=== PATIENT | male | born 2000 | race Caucasian/White ===

== ENCOUNTER 2018-08-23 11:36 | Day surgery (SDC) | payer OTHER ==
[2018-08-22 15:58] VITALS: BMI 23.1
[2018-08-23] MEDS ORDERED: Fentanyl 250 MCG/5 ML VIAL ONE (13:30)
[2018-08-23] MEDS ORDERED: Bupivacaine HCl 0.5%/Epinephrine 1:200,000/PF 30 ml Vial ONE (13:34)
[2018-08-23] MEDS ORDERED: Neomycin-Polymyxin 1 ML AMP ONE (13:34)
[2018-08-23] MEDS ORDERED: PHENYLEPHRINE-NS 100 MCG/ML 10 ML SYRINGE ONE (14:29)
[2018-08-23] MEDS ORDERED: PROPOFOL 200 MG/20 ML VIAL ONE (14:29)
[2018-08-23] MEDS ORDERED: Glycopyrrolate 0.2 MG/ML 5 ML SYRINGE ONE (14:29)
[2018-08-23] MEDS ORDERED: Lidocaine 1% PF 5 ML VIAL ONE (14:29)
[2018-08-23] MEDS ORDERED: Rocuronium Bromide 10 MG/ML (10ML VIAL) ONE (14:29)
[2018-08-23] MEDS ORDERED: Ondansetron PF 4 MG/2 ML Vial ONE (14:29)
[2018-08-23] MEDS ORDERED: Dexamethasone 20 MG/5 ML VIAL ONE (14:29)
--- NOTE | 2018-08-23 15:46 | RAD ---
RIGHT CLAVICLE TWO VIEWS: HISTORY: Open reduction and internal fixation, right clavicle. FINDINGS: AP and axillary view, right clavicle, demonstrate open reduction and internal fixation of a mid right clavicular fracture. Plates and screws are in good position. IMPRESSION: Open reduction and internal fixation, right clavicle. POS: ELLIOTT
[2018-08-23] MEDS ORDERED: Fentanyl 100 MCG/2 ML VIAL ONE (15:50)
[2018-08-23] MEDS ORDERED: HYDROcodone/Acetaminophen 5/325 mg Tablet ONE ×2 (16:32→16:33)
--- NOTE | 2018-08-23 16:42 | OP ---
DATE OF PROCEDURE: 08/23/2018 PREOPERATIVE DIAGNOSIS: Comminuted midshaft fracture of the right clavicle. POSTOPERATIVE DIAGNOSIS: Comminuted midshaft fracture of the right clavicle. PROCEDURE PERFORMED: Open reduction and internal fixation of comminuted midshaft fracture of the right clavicle. ANESTHESIA: General. DESCRIPTION OF PROCEDURE: The patient was given preoperative IV antibiotics, taken to the operating room, placed in a supine position. Satisfactory general anesthesia was performed. The patient was then placed in a beach chair position. The right clavicular area was sterilely prepped and draped in usual fashion. Incision was made over the mid clavicular area in a transverse fashion approximately 3.5 inches in length. Blunt and sharp dissection was made down to the anterior superior aspect of the clavicle. The fracture was noted to have comminution. There was one main butterfly fragment that was from all soft tissue was placed on the back table. The fracture then was reduced and internally fixed using a 6-hole [employer]ynthe[employer] clavicular locking plate using initially a 3.5 cortical screw on each side of the fracture and then a 3.5 locking screw distally and 2 more proximally. This provided excellent fixation for the clavicle. This was confirmed with the C-arm. Proper alignment of the fracture as well as proper placement of the plate and screws. The wound was then copiously irrigated with antibiotic solution. The butterfly fragment was placed back in its anatomic position and the fascia over the clavicle and the plate was closed using 0 Vicryl. The fat and subcutaneous tissues were closed with 2-0 Vicryl and skin was closed 3-0 Rapide. The wound was then infiltrated with 30 mL of 0.5% Marcaine with epinephrine. Sterile dressing was applied. The patient was awakened, extubated, and transferred to recovery room in stable condition. ESTIMATED BLOOD LOSS: 50 mL. COMPLICATIONS: None. DISCHARGE MEDICATION: Tylenol No. 4 one every 6 hours as needed for pain #50 with one refill. FOLLOWUP: Follow up in my office in 1-2 weeks. Job ID: [id number]
== END 2018-08-23 18:20 | disposition home or self-care (01) ==
LOC: SDC 11:36
PROVIDERS: ATTEND Orthopaedic Surgery
PROC: 0PS904Z Reposition Right Clavicle with Internal Fixation Device, Open Approach (ICD-10-PCS; principal; 2018-08-23)
DX: S42.021A Displaced fracture of shaft of right clavicle, initial encounter for closed fracture (principal); W19.XXXA Unspecified fall, initial encounter; Y93.55 Activity, bike riding
CPT/HCPCS: 76000; C1713; J0670; J1100; J2001; J2405; J2704; J3010

== ENCOUNTER 2020-10-25 13:33 | Emergency (ER) | payer SELFPAY ==
[2020-10-25 14:43] LABS: #Eosinphils 0.1 thou/uL (0.0-0.7); #Lymphocytes 2.1 thou/uL (1.20-3.40); #Monocytes 0.6 thou/uL (0.11-0.59); #Neutrophils 7.1 thou/uL (1.40-6.50); %Basophils 0.5 % (0.0-1.0); %Eosinophils 0.7 % (0.0-10.0); %Lymphocytes 21.3 % (21.0-51.0); %Monocytes 5.6 % (0.0-10.0); Hemoglobin 15.4 g/dL (14.0-18.0); Mean Corpuscular HGB CONC 33.8 g/dL (32.0-36.0); Mean Corpuscular Volume 88.8 fL (78.0-98.0); Mean Platelet Volume 7.6 fL (7.4-10.4); Platelet Count 215 thou/uL (130-400); RBC Distribution Width 11.7 % (11.5-14.5); Red Blood Cell (RBC) Count 5.12 mill/uL (4.70-6.10); White Blood Cell (WBC) Count 9.9 thou/uL (4.8-10.8)
[2020-10-25 15:00] LABS: ALT (SGPT) 13 U/L (8-55); AST (SGOT) 19 U/L (5-34); Albumin 4.7 g/dL (3.5-5.0); Alkaline Phosphatase 72 U/L (40-110); Anion Gap 14 mmol/L (10-20); BUN (Urea Nitrogen) 10 mg/dL (8.9-20.6); Bilirubin, Total 0.5 mg/dL (0.2-1.2); Calc. Creatinine Clearance 0 mL/min (70-130); Calcium 9.9 mg/dL (7.8-10.44); Carbon Dioxide 26 mmol/L (22-29); Chloride 105 mmol/L (98-107); Globulin 3.7 g/dL (2.4-3.5); Glucose 90 mg/dL (70-105); Potassium 4.5 mmol/L (3.5-5.1); Protein, Total 8.4 g/dL (6.0-8.3); Sodium 140 mmol/L (136-145)
[2020-10-25] MEDS ORDERED: Ketorolac Tromethamine 30 MG/ML VIAL ONE (16:20)
[2020-10-25] MEDS ORDERED: Metoclopramide HCl 10 MG/2 ML VIAL ONE (16:20)
[2020-10-25] MEDS ORDERED: diphenhydrAMINE 50 MG/ML VIAL ONE (16:20)
== END 2020-10-25 17:59 | disposition home or self-care (01) ==
LOC: ERS 13:33
DX: H81.399 Other peripheral vertigo, unspecified ear (principal); R51.9 Headache, unspecified; F17.210 Nicotine dependence, cigarettes, uncomplicated
CPT/HCPCS: 36415; 70450; 80053; 85025; 93005; 96372; J1200; J1885; J2765